=== PATIENT | male | born 1995 | race Caucasian/White ===

== ENCOUNTER 2018-03-05 19:51 | Emergency (ER) | payer BC ==
[2018-03-05 20:07] VITALS: BP 124/74
--- NOTE | 2018-03-05 20:22 | UC ---
Throat Pain/Nasal Felix HPI - HPI Summary HPI Summary: Pt c/o sore throat and sores X 4 days. pt also c/o thick yellow nail son fingers and toenails. - History of Current Complaint Hx Obtained From: Patient Onset/Duration: Gradual Onset, Lasting Days, Still Present, Worse Since - onset Severity: Mild Pain Intensity: 3 Cough: None Associated Signs & Symptoms: Positive: Dysphagia - Epiglottits Risk Factors Epiglottis Risk Factors: Negative <Ananya Izaguirre NP - Last Filed: 03/05/18 20:47> <Praveen Baptiste - Last Filed: 03/05/18 22:00> - History of Current Complaint Chief Complaint: UCGeneralIllness Stated Complaint: SORE THROAT Time Seen by Provider: 03/05/18 20:14 - Allergies/Home Medications Allergies/Adverse Reactions: Allergies Allergy/AdvReac Type Severity Reaction Status Date / Time No Known Allergies Allergy Verified 03/05/18 20:05 PMH/Surg Hx/FS Hx/Imm Hx Previously Healthy: Yes - Surgical History Surgical History: Yes Surgery Procedure, Year, and Place: ear tubes - Family History Known Family History: Positive: Other - colon cancer - Social History Occupation: Employed Full-time Lives: With Family Alcohol Use: None Substance Use Type: None Smoking Status (MU): Never Smoked Tobacco Have You Smoked in the Last Year: No <Ananya Izaguirre NP - Last Filed: 03/05/18 20:47> Review of Systems Constitutional: Negative Skin: Other - yellow thick nails, fingernail and toe nails Eyes: Negative ENT: Sore Throat Respiratory: Negative Cardiovascular: Negative Gastrointestinal: Negative Genitourinary: Negative Motor: Negative Neurovascular: Negative Musculoskeletal: Negative Neurological: Negative Psychological: Negative Is Patient Immunocompromised?: No All Other Systems Reviewed And Are Negative: Yes <Ananya Izaguirre NP - Last Filed: 03/05/18 20:47> Physical Exam Triage Information Reviewed: Yes Appearance: Well-Appearing Vital Signs: Initial Vital Signs Temp 98.5 F 03/05/18 20:02 Pulse 66 03/05/18 20:02 Resp 13 03/05/18 20:02 BP 124/74 03/05/18 20:02 Pulse Ox 100 03/05/18 20:02 Vital Signs Reviewed: Yes Eye Exam: Normal ENT Exam: Other ENT: Positive: Other - ulceration right tonsil and soft palate Dental Exam: Normal Neck: Positive: Enlarged Nodes @ - right submandibular Respiratory Exam: Normal Cardiovascular Exam: Normal Musculoskeletal Exam: Normal Neurological Exam: Normal Psychological Exam: Normal Skin Exam: Other - thick yellow finger nails and toe nails. <Ananya Izaguirre NP - Last Filed: 03/05/18 20:47> Vital Signs: Initial Vital Signs Temp 98.5 F 03/05/18 20:02 Pulse 66 03/05/18 20:02 Resp 13 03/05/18 20:02 BP 124/74 03/05/18 20:02 Pulse Ox 100 03/05/18 20:02 <Praveen Baptiste - Last Filed: 03/05/18 22:00> Diagnostics - Laboratory Diagnostic Studies Completed/Ordered: rapid strep: negative <Ananya Izaguirre NP - Last Filed: 03/05/18 20:47> Throat Pain/Nasal Course/Dx - Differential Dx/Diagnosis Differential Diagnosis/HQI/PQRI: Pharyngitis, Tonsillitis Provider Diagnoses: oral herpes simplex. tinea unguium <Ananya Izaguirre NP Last Filed: 03/05/18 20:47> Discharge - Sign-Out/Discharge Documenting (check all that apply): Discharge/Admit/Transfer - Billing Disposition and Condition Condition: STABLE Disposition: Home <Ananya Izaguirre NP - Last Filed: 03/05/18 20:47> - Billing Disposition and Condition Condition: STABLE Disposition: Home <Praveen Baptiste - Last Filed: 03/05/18 22:00> - Discharge Plan Condition: Stable Disposition: HOME Prescriptions: Magic Mouth Was-LUCRETIA/MAAL/LIDO* 5 ml SWISH SWAL QID PRN #140 ml PRN Reason: Pain Terbinafine HCl 250 mg PO DAILY #84 tablet ValACYclovir (*) [Valtrex 500 mg (*)] 500 mg PO Q12H #14 tab Patient Education Materials: Oral Herpes Simplex Virus Infections (ED), Skin Yeast Infection (ED) Referrals: Raj Gonzalez MD [Primary Care Provider] - If Needed Additional Instructions: Per institutional requirements, I have reviewed the chart, however, I was not consulted specifically or made aware of this patient by the above midlevel provider. I did not personally evaluate, interact with , or disposition this patient.
== END 2018-03-05 20:53 | disposition home or self-care (01) ==
LOC: UCCORT 19:51
DX: B00.9 Herpesviral infection, unspecified (principal); B35.1 Tinea unguium
CPT/HCPCS: 87651; 99212; G0463